=== PATIENT | male | born 1955 | race Caucasian/White ===

== ENCOUNTER 2023-02-17 17:38 | Emergency (ER) | payer BC, MEDICARE, SELFPAY ==
--- NOTE | 2023-02-17 | ECG_ITS ---
Test Reason : FALL/DIZZY Blood Pressure : / mmHG Vent. Rate : 145 BPM Atrial Rate : 000 BPM P-R Int : 000 ms QRS Dur : 086 ms QT Int : 298 ms P-R-T Axes : 000 -13 155 degrees QTc Int : 462 ms Atrial fibrillation with rapid ventricular response Inferior infarct (cited on or before 14-NOV-2015) ST & T wave abnormality, consider lateral ischemia Abnormal ECG When compared with ECG of 14-NOV-2015 05:48, Atrial fibrillation has replaced Sinus rhythm Vent. rate has increased BY [address] now depressed in Lateral leads Nonspecific T wave abnormality no longer evident in Anterior leads Referred By: Generic ED Physician Electronically Signed By:GIOVANNI MUELLER MD
--- NOTE | ~2023-02-17 | XR_ITS ---
EXAMINATION: XR ELBOW, RIGHT CLINICAL INFORMATION: Fall with elbow pain COMPARISON: None available. TECHNIQUE: AP, lateral, and oblique views of the right elbow. FINDINGS: An elbow joint effusion is seen. A definite acute fracture is not identified although given the presence of a probable joint effusion/hemarthrosis, an occult fracture may be present. XR/XR elbow RT min 3V IMPRESSION: Elbow joint effusion without definite fracture. An occult fracture cannot be excluded.
[2023-02-17 17:49] VITALS: BP 151/77; PULSE 122; RESP 18; TEMP 36.8; O2SAT 98; BMI 24.9
[2023-02-17 18:46] LABS: MANUAL DIFF FLAG NO
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
[2023-02-17 18:48] LABS: Basophils Absolute Auto 0.1 X10*3/uL (0.0-0.2); Basophils Percent Auto 0.4 % (0-2); Eosinophils Absolute Auto 0.1 X10*3/uL (0.0-0.4); Eosinophils Percent Auto 0.8 % (0-4); Hematocrit 35.1 % (42.0-52.0); Hemoglobin 12.1 g/dl (14.0-18.0); Imm Gran Abs Auto 0.03 X10*3/uL (0.00-0.03); Imm Gran Pct Auto 0.3 % (0.0-0.4); Lymphocytes Absolute Auto 2.1 X10*3/uL (1.2-4.9); Lymphocytes Percent Auto 18.4 % (20-40); Mean Corpuscular HGB Conc 34.5 g/dl (31.0-36.0); Mean Corpuscular Volume 87.1 fL (80.0-98.0); Mean Platelet Volume 9.8 fL (9.4-12.4); Monocytes Percent Auto 8.6 % (2-11); Neutrophils Absolute Auto 8.1 x10*3/uL (2.0-8.3); Neutrophils Percent Auto 71.5 % (45-73); Platelet Count 252 X10*3/uL (160-400); Red Blood Count 4.03 X10*6/uL (4.60-5.80); Red Cell Distribution Width 12.7 % (11.0-16.0); White Blood Count 11.4 X10*3/uL (4.8-10.8)
--- NOTE | 2023-02-17 18:55 | ECG_ITS ---
Test Reason : AFIB Blood Pressure : / mmHG Vent. Rate : 088 BPM Atrial Rate : 088 BPM P-R Int : 152 ms QRS Dur : 078 ms QT Int : 338 ms P-R-T Axes : 045 -03 073 degrees QTc Int : 408 ms Normal sinus rhythm Nonspecific ST abnormality Lateral leads Inferior infarct (cited on or before 14-NOV-2015) Abnormal ECG When compared with ECG of 17-FEB-2023 18:17, Sinus rhythm has replaced Atrial fibrillation Vent. rate has decreased BY 57 BPM Referred By: Fermín Patterson Electronically Signed By:GIOVANNI MUELLER MD
[2023-02-17 18:56] LABS: Prothrombin Time 12.6 SEC (11.1-13.3)
[2023-02-17 19:00] LABS: Alanine Aminotransferase 9 U/L (0-40); Albumin Level 4.7 g/dL (3.5-5.0); Alkaline Phosphatase 110 U/L (39-117); Anion Gap 16 (12-20); Aspartate Amino Transferase 18 U/L (5-37); Bilirubin Total 0.6 mg/dL (0.0-1.0); Blood Urea Nitrogen 24 mg/dL (9-16); Calcium 9.8 mg/dL (8.4-10.2); Carbon Dioxide 21 mmol/L (22-29); Chloride 108 mmol/L (96-108); Creatinine Clr Calc Pharmacy 64.6; Estimated Glomerular Filt Rate > 60; Glucose Random 154 mg/dL (60-115); Magnesium 1.7 mg/dL (1.6-2.6); Potassium 4.4 mmol/L (3.3-5.1); Sodium 141 mmol/L (135-145); Total Protein 8.1 g/dL (6.5-8.0)
[2023-02-17 19:07] LABS: Troponin-I High Sensitivity 5.2 ng/L (<3.5-35.0)
[2023-02-17] MEDS: Morphine Sulfate 4 MG/ML CARTRIDGE IVPUSH ×2 (19:10→20:40)
[2023-02-17] MEDS: ondansetron HCL 4 MG/2 ML VIAL IVPUSH (19:10)
[2023-02-17 19:14] VITALS: BP 146/60; PULSE 88; RESP 12; TEMP 37.6; O2SAT 98
--- NOTE | 2023-02-17 19:39 | PC.NURSE ---
I assumed care of the pt at 1900. Pt is resting in bed at this time with at the bedside, A&Ox4, GCS 15,. Pt is complaining of 11/10 pain in the right arm. Pt was medicated per JUN. Pt waiting official XRay report and ortho consult with dispo at this time. Due to potential for surgery, eliquis is being held, per .
[2023-02-17] MEDS: Apixaban 5 MG TABLET PO (20:21)
[2023-02-17] MEDS: dilTIAZem HCL CD 120 MG CAP.ER.DEG PO (21:00)
== END 2023-02-17 21:23 | disposition home or self-care (01) ==
PROVIDERS: Emergency Provider Internal Medicine; PCP Physician Assistant Medical
DX: S52.91XA Unspecified fracture of right forearm, initial encounter for closed fracture (principal); S80.212A Abrasion, left knee, initial encounter; V28.09XA Other motorcycle driver injured in noncollision transport accident in nontraffic accident, initial encounter; I48.0 Paroxysmal atrial fibrillation; I10 Essential (primary) hypertension; E78.5 Hyperlipidemia, unspecified; Z95.1 Presence of aortocoronary bypass graft; Y93.89 Activity, other specified; Y92.9 Unspecified place or not applicable; Y99.9 Unspecified external cause status; Z79.899 Other long term (current) drug therapy; Z79.82 Long term (current) use of aspirin
CPT/HCPCS: 29105; 36415; 73080; 80053; 83735; 84484; 85025; 85610; 93005; 96374; 96375; 96376; 99284; J2270; J2405

== ENCOUNTER 2025-02-26 10:12 | Outpatient (AMB) | payer BC, MEDICARE, SELFPAY ==
--- NOTE | 2025-02-26 10:15 | A.PHYSOV ---
Vital Signs 02/26/25 10:20 Height 6 ft Weight 2 lb 15 oz BMI 0.4 Intake Visit Reasons: 3M FUV Intake Note: 69 year old male here today for a 3 month medication follow up on oxycodone Hoistman Required: No Allergies latex (LATEX) Allergy (Mild, Verified 02/26/25 10:19) RASH HPI Comments Details: History of Present Illness The patient is a 69-year-old male presenting with neck and lower back pain. He has been experiencing bilateral upper and lower extremity radicular symptoms and has undergone lumbar and cervical epidural injections. The most recent bilateral L4 transforaminal injections on September 11, 2022, resulted in a 100% reduction of radicular pain and a 70% reduction of lower back pain. The patient received a cervical epidural injection at C7 on October 16, 2022, which provided excellent relief. He is contracted for oxycodone 10 mg four times a day as needed, which has stabilized his medication use and improved his quality of life. He reports cramping in his right hand, and a carpal tunnel injection on November 25, 2024, was very helpful. The patient also experiences pain in both knees, with injections providing relief for a couple of months. He describes the condition as bone against bone with no cartilage, leading to sudden falls. The patient is scheduled for hernia surgery in April, which is expected to be painful. There is a discussion about adjusting medications post-surgery to manage pain effectively. Pain Description - Neck and lower back pain with bilateral upper and lower extremity radicular symptoms - Pain in both knees described as bone against bone with no cartilage - Cramping in the right hand Results [facility] Medical History (Updated 02/26/25 @ 10:46 by Rodríguez Fontaine DO) Coronary artery disease Hyperlipidemia Hypertension Surgical History (Updated 02/24/25 @ 13:41 by Radha Good MA) History of cholecystectomy (Unknown) History of spinal surgery (Unknown) History of neck surgery (Unknown) Hx of CABG Social History (Updated 02/24/25 @ 13:43 by Radha Good MA) Alcohol intake: never Patient Tobacco Use Status: Never used Tobacco Review of Systems Narrative Review of Systems - Musculoskeletal: Reports neck and lower back pain, bilateral upper and lower extremity radicular symptoms, knee pain, and cramping in the right hand. Denies change in bowel bladder habits, denies fever or chills, denies uncontrolled depression or suicidal ideation Physical Exam Exam Exam: Patient appears to be in no acute distress. Appropriately conversant oriented, gait was waddling without antalgia. Dural tension signs were negative. Lumbar range of motion was restricted in extension side bending. Cervical range of motion was restricted in all planes. SI provocative maneuvers were negative. Patient demonstrated an upper motor neuron signs. Neurologic examination was nonfocal. Examination of both knees reveals tenderness to palpation over medial joint line. Crepitus with flexion-extension. No effusion, no ligamentous instability. Heel walk and toe walk were not tested. Office Procedures AMB Knee Injection AMB Knee Injection Procedure Details: Risks and benefits of the procedure were discussed with the patient. Potential alternative measures were also discussed. Patient understands that the procedure is completely elective. Potential side effects associated with injectable medications were discussed. All questions were answered to the patient's satisfaction. With patient in sitting position medial aspect of the right knee was prepped with Betadine. 1.5 in 25 gauge hypodermic needle was introduced percutaneously and advanced into the joint. After negative aspiration for blood to the volume of 4 cc containing 40 mg of triamcinolone and 2% lidocaine was injected without resistance. The identical procedure was repeated for the left side. Patient tolerated procedure very well without complications with excellent anesthetic response. Knee Injection - : Bilateral All charges added?: Procedure code (CPT) selection complete Office Meds Kenalog 40 mg/mL suspension for injection Performing Provider: Rodríguez Fontaine DO Performing Location: [facility] Administered by: Rodríguez Fontaine DO on 02/26/25 10:50 Dose Route Admin Location Dispensed Lot Number Expiration Date [facility] [employer] 80 mg intra-articular 2 mL [id number] 09/20/26 [address]-5 [employer] Total Dispensed Waste 2 mL 0 % lidocaine (PF) 20 mg/mL (2 %) injection solution Performing Provider: Rodríguez Fontaine DO Performing Location: [facility] Administered by: Rodríguez Fontaine DO on 02/26/25 10:50 Dose Route Admin Location Dispensed Lot Number Expiration Date [facility] [employer] 120 mg IM 6 mL [id number] Total Dispensed Waste 6 mL 0 % Assessment & Plan Assessment & Plan (1) Bilateral primary osteoarthritis of knee: Code(s): M17.0 - Bilateral primary osteoarthritis of knee Category: Medical Plan Pain Management - Affect: Pain management has improved the patient's quality of life. - Analgesia: Oxycodone 10 mg four times a day as needed, with significant pain reduction from injections. - Activities of Daily Living: Pain management has stabilized medication use and improved daily functioning. Plan Patient was informed and verbally consented to the use of an ambient scribe for clinic note documentation during this visit. 1. Neck Pain The patient has been experiencing neck pain with bilateral upper extremity radicular symptoms. He has undergone cervical epidural injections, with the most recent at C7 on October 16, 2022, providing excellent relief. 2. Lower Back Pain The patient reports lower back pain with bilateral lower extremity radicular symptoms. Bilateral L4 transforaminal injections on September 11, 2022, resulted in a 70% reduction of pain. 3. Carpal Tunnel Syndrome The patient reports cramping in the right hand, with a carpal tunnel injection on November 25, 2024, being very helpful. 4. Osteoarthritis Of The Knees The patient experiences knee pain described as bone against bone with no cartilage. Injections have provided relief for a couple of months. 5. Hernia The patient is scheduled for hernia surgery in April, which is expected to be painful. There is a plan to adjust medications post-surgery to manage pain effectively. Discussion Notes We discussed the patient's upcoming hernia surgery in April, which is anticipated to be painful. Options for managing post-surgical pain include adjusting the current medication regimen or allowing the surgical team to manage pain initially. The patient was reassured that the medication contract would not be compromised during this period. Patient Instructions - Continue current pain management regimen as prescribed. - Follow up with the surgical team regarding hernia surgery and post-operative pain management. - Report any changes in pain or medication effectiveness. Orders: Orders AMB Knee Injection Today M17.0 - Bilateral primary osteoarthritis of knee Coding Level of Care Code Est Pt Level 4 (64745) Complex EM visit Add On G2211 Diagnoses Bilateral primary osteoarthritis of knee M17.0 CPT Codes AMB Knee Injection - Hip/Bursa Injection - : Bilateral ([id number])
--- OUTSIDE RECORDS SUMMARY | 2025-02-26 11:55 | XMS_ITS | Clinical Summary ---
Author Organization [facility] Address [address] [place] [id number] Phone Care Team Providers Care Sale Professional Digital Marketing Name Role Phone Hernan Wheatley MD Primary Care Provider U alfredailmanas Allergies Active Allergy Reactions Criticality Noted Date Comments Latex 08/18/2018 Medications clopidogrel (PLAVIX) 75 mg tablet Take 75 mg by mouth daily. Active lisinopril (PRINIVIL,ZESTRI L) 30 MG tablet Take 30 mg by mouth daily. Active metFORMIN (GLUCOPHAGE) 500 MG tablet Take 500 mg by mouth daily. Active oxyCODONE (OXYCONTIN) 10 mg TR12 12 hr tablet Take 10 mg by mouth 4 (four) times a day. Active sertraline (ZOLOFT) 100 MG tablet Take 100 mg by mouth daily. Active Social History Tobacco Use Types Packs/Day Years Used Date Smoking Tobacco: Unknown Smokeless Tobacco: Never Alcohol Use Standard Drinks/Week Comments Not Currently 0 (1 standard drink = 0.6 oz pur e alcohol) Education Answer Date Recorded Are you interested in more education? Not on abigail e 08/18/2022 Are you concerned about learning? Not on file 08/18/2022 No 08/18/2022 No 08/18/2022 Digital Access Answer Date Recorded No 09/19/2022 No 09/19/2022 No 09/19/2022 Reliable internet access at home? Not on file 09/19/2022 Device with a working camera? Not on file Sex and Gender Information Value Date Recorded Sex Assigned at Male 08/18/2018 2:09 PM EDT Legal Sex Male 1:55 PM EDT Gender Identity Male 08/18/2018 2:09 PM EDT Sexual Orientation Straight 08/18/2018 2: 09 PM EDT Last Filed Vital Signs Vital Sign Reading Time Taken Comments Blood Pressure 141/73 08/18/2018 4:53 PM EDT Pulse 93 08/18/2018 4:53 PM EDT Temperature 36.8 C (98.3 F) 08/18/2018 2:06 PM EDT Respiratory Rate 15 08/18/2018 4:53 PM EDT Oxygen Saturation 99% 08/18/2018 4:53 PM EDT Inhaled Oxygen Concentration - - Weight 115.7 kg (255 lb) 08/18/2018 2:06 PM EDT Height 185.4 cm (6' 1 ) 08/18/2018 2:06 PM EDT Body Mass Index 33.64 08/18/2018 2:06 PM EDT Plan of Treatment Not on file Medical Devices Not on file Insurance MEDICARE PART A & B [facility] PPO EPO MEDICARE PART A & B [facility] PPO EPO MEDICARE PART A & B [facility] PPO EPO MEDICARE PART A & B Member Subscriber Plan / Payer (Ef fective 2018-Present) Name:RosaIsrrael hernandez Member ID:[id number] Relation to Subscriber:Self Name:Isrrael Lee Subscriber ID:[id number] Payer ID:[id number] Group ID:Not on file Type:Medicare Address: [employer] [id number] [facility] PPO EPO MEDICARE PART A & [place] [address] [place] [address] PPO EPO MEDICARE PART A & B PPO EPO MEDICARE PART A & [place] [address] [place] [address] PPO EPO MEDICARE PART A & [facility] A & B [employer] [facility] EPO MEDICARE PART A & B Care Teams Sale Professional Digital Marketing Relationship Specialty Start Date End Date Hernan Wheatley MD PCP - General Internal Medicine 08/18/18 Additional Source Comments The information contained in this document represents components of the legal health record. It is not the complete legal health record.[facility]
--- OUTSIDE RECORDS SUMMARY | 2025-02-26 11:55 | XMS_ITS | Clinical Summary ---
Author Organization [address] [facility] Address [address] [place] [address] Phone Care Team Providers Care Centrifugal Drier Operator Name Role Phone Isrrael Dowling Primary Care Provider [phone] Allergies Active Allergy Reactions Criticality Noted Date Comments Latex Rash High 08/20/2006 Medications cholecalciferol (VITAMIN D-3) 25 mcg (1,000 unit) tablet Take 1 tablet (1,000 Units total) by mouth 1 (one) time each day. 08/01/2022 Active cyanocobalamin (VITAMIN B-12) 1,000 mcg/mL injection Inject 1 mL into the muscle every 30 days. 06/02/2023 Active nitroglycerin (NITROSTAT) 0.[address] 1 Tablet under the tongue every 5 minutes as needed for Chest pain. 11/13/2023 Active oxyCODONE-aceta minophen (PERCOCET) 10-325 mg per tablet Take 1 tablet by mouth every 6 hours as needed for Pain for up to 28 days 03/22/2018 Active docusate sodium (COLACE) 100 mg capsule Take 1 capsule (100 mg total) by mouth 2 (two) times a day. 14 each 06/02/2024 Active ezetimibe (ZETIA) 10 mg tablet Take 1 tablet (10 mg total) by mouth 1 (one) time each day. Take 1 Tablet by mouth daily for 180 days. 90 each 3 12/30/2024 Active rosuvastatin (CRESTOR) 40 mg tablet TAKE 1 TABLET BY MOUTH DAILY 90 tablet 01/21/2025 Active tamsulosin (FLOMAX) 0.4 mg 24 hr capsule Take 2 capsules (0.8 mg total) by mouth 1 (one) time each day. 180 capsule 01/21/2025 Active rivastigmine (EXELON) 1.5 mg capsule Take 1 capsule (1.5 mg total) by mouth 2 (two) times a day. 180 capsule 01/21/2025 Active cyclobenzaprine (FLEXERIL) 10 mg tablet Take 1 tablet (10 mg total) by mouth 3 (three) times a day if needed for muscle spasms. for muscle spasms 30 tablet 1 01/21/2025 Active apixaban (Eliquis) 5 mg tablet Take 1 tablet (5 mg total) by mouth 2 (two) times a day. 180 tablet 1 01/19/2025 Active sertraline (ZOLOFT) 100 mg tablet Take 2 tablets (200 mg total) by mouth 1 (one) time each day. Take 2 Tablets by mouth daily 180 tablet 1 01/20/2025 Active pantoprazole (PROTONIX) 40 mg EC tablet Take 1 tablet (40 mg total) by mouth 1 (one) time each day. 90 tablet 3 01/27/2025 Active memantine (NAMENDA) 10 mg tablet Take 1 tablet (10 mg total) by mouth 2 (two) times a day. 180 tablet 3 01/27/2025 Active amLODIPine (NORVASC) 5 mg tablet Take 1 tablet (5 mg total) by mouth 1 (one) time each day. 90 tablet 3 01/27/2025 Active metoprolol succinate (TOPROL-XL) 50 mg 24 hr tablet Take 1 tablet (50 mg total) by mouth 1 (one) time each day. Take 1 Tablet by mouth every morning for 180 days 90 tablet 3 01/27/2025 Active Active Problems Problem Noted Date Diagnosed Date Infection and inflammatory r eaction due to other internal prosthetic devices, implants and grafts, subsequent encounter 06/25/2024 Disruption or dehiscence of closure of internal operation (surgical) wound of abdominal wall muscle or fascia, subsequent encounter 05/23/2024 Diabetes mellitus with perip heral angiopathy (CMS/HCC V24, CMS/[facility] V28) 05/23/2024 Dementia in other diseases c lassified elsewhere, unspecified severity, with mood disturbance ([facility] V24, CMS/HCC V28) 05/23/2024 Dementia in other diseases c lassified elsewhere, unspecified severity, with anxiety (CMS/[facility] V24, CMS/HCC V28) 05/23/2024 Combined rheumatic disorders of mitral, aortic and tricuspid valves 05/23/2024 Pulmonary hypertension (CMS/[facility] V24, CMS/[facility] V28 ) 05/23/2024 Benign prostatic hyperplasia without lower urinary tract symptoms 05/23/2024 Presence of coronary artery bypass graft stent 0 05/23/2024 termite helper (current) use of oral hypoglycemic yasmin gs 05/23/2024 termite helper (current) use of anticoagulants 2024 History of fall 05/23/2024 Open abdominal wall wound 05/19/2024 Gastric perforation (CMS/[facility] V24, [facility] V28) 0 12/10/2023 Pneumoperitoneum 12/10/2023 Hyperkalemia 06/02/2023 Benign prostatic hyperplasia with lower urinary tract symptoms 05/14/2023 Paroxysmal atrial fibrillation ([facility] V24, [facility] V28) 03/13/2023 Overview (12/19/2023): - Hospitalized at [facility] in late January 2023 with new diagnosis of atrial fibrillation-presenting with RVR in the 140s - Initially presented after falling off of his motorized scooter injuring his right elbow with A-fib being an incidental finding-patient was effectively asymptomatic - Started on low-dose diltiazem in addition to his current metoprolol and Eliquis for CVA prophylaxis - Had a second episode of less severe atrial fibrillation on 05/04/2023 and another more severe episode with higher heart rates in the 150s tween 05/27/2023 and 05/28/2023- these were recorded on his [employer] mobile device and Dr. Suero was able to confirm that these were true atrial fibrillation episodes - Trial of amiodarone started on 05/31/2023 Last Assessment & Plan: Patient is clearly symptomatic with his atrial fibrillation-particularly when he has high heart rates. I suspect it is also triggering his angina. I reviewed that if he starts having chest pain again, he should go to the hospital. The less severe episodes are less clear. I explained that it really depends on how much they are bothering him. Typically I use a threshold of about 6 hours but this is more an art than a science. After discussion of risks and benefits, and through shared decision making, we are going to proceed with a slow amiodarone load. I am starting him on 200 twice daily. Side effects were reviewed with the patient and his daughter who verbalized understanding. I have ordered TFTs and LFTs for baseline. I have ordered PFTs as well. Ultimately, I am also referring him to electrophysiology to discuss ablation. If this is agreed upon is the plan, he potentially could get off of amiodarone after ablation. Continue Eliquis 5 twice daily for CVA prophylaxis. Since he has been on uninterrupted Eliquis for more than 4 weeks now, should he go to the ER for any refractory episodes of atrial fibrillation, he can be cardioverted in the ER and discharged. At this point, I will discontinue diltiazem as it may be contributing to ongoing orthostatic hypotension symptoms. Bilateral carotid artery stenosis 02/09/2023 Dyspnea on effort 12/01/2022 Overview (12/19/2023): Last Assessment & Plan: May be related to chronotropic incompetence, I am hopeful that cutting back on metoprolol will help. Alzheimer's dementia without behavioral disturbance ([facility] V24, [facility] V28) 08/05/2018 Vitamin D deficiency 05/07/2018 Vitamin B12 deficiency 05/07/2018 Acute medial meniscus tear of right knee 018 Subclinical hyperthyroidism 02/02/2017 PVD (peripheral vascular disease) ([facility] V24) 08/18/2016 Overview (02/14/2024): -Long-standing claudication symptoms -PIERCE in August 2016 of 0.96 on the right and 0.87 on the left-normal waveforms at all levels suggesting insignificant PVD; lower extremity arterial duplex Doppler on the same day showed mild stenosis in the right external iliac and right common femoral artery and mild diffuse disease in the left mid to distal SFA and diffuse disease in the left REBEKA -Ultimately claudication symptoms are likely neurogenic in light of the studies as above Orthostatic hypotension 07/03/2016 Overview (12/19/2023): Last Assessment & Plan: Will discontinue diltiazem. Cautiously continue current metoprolol XL dose and lisinopril 10 mg daily. Hypogonadism in male 04/12/2016 Anxiety and depression 10/14/2014 Diabetes mellitus type 2, co ntrolled, without complications ([facility] V24, [facility] V28) 09/15/2014 Assessment & Plan (09/16/2024 10:02 PM EDT): Orders: Lipid panel with reflex to direct LDL; Future Microalbumin creatinine urine ratio; Future Comprehensive metabolic panel; Future Hemoglobin A1c; Future Vitamin D 25 hydroxy; Future Vitamin B12; Future CBC and differential; Future Thyroid stimulating hormone with reflex to free t4 and free t3; Future Iron and TIBC; Future Cervical radiculitis 06/17/2009 Lumbosacral radiculitis 06/17/2009 Sacroiliac pain 06/17/2009 Dysphagia 02/01/2009 Coronary artery disease 01/23/2008 Overview (12/19/2023): -Status post CABG in 2011 with JORDAN to the LAD, radial to the OM1, and vein graft to the RCA -Status post repeat cardiac cath 11/14/2013 for ongoing anginal symptoms and high risk stress test with PCI and drug-eluting stent to the [place] RCA for significant blockage -Status post repeat hospitalization in June 2016 for unstable angina with dynamic ECG changes-new anterolateral ST depressions though troponin T was negative- repeat cardiac cath during this hospitalization showed showed ISR with 100% occlusion of an ostial PDA, which was thought to be the culprit. Intervention could not be performed due to low benefit and complexity. As such, it was managed medically. However he has been maintained on Plavix for UA per CURE protocol -Most recent echocardiogram from 10/30/2022 showing upper normal left ventricular cavity size with normal wall thickness and low normal systolic function, normal regional wall motion with an ejection fraction of 50 to 55%. Paradoxic septal motion in keeping with prior cardiac surgery, grossly normal right ventricular systolic function, mild aortic insufficiency, mild MR, mild TR, at least mild pulmonary hypertension, upper normal ascending aortic size at 3.8 cm Last Assessment & Plan: Did have an episode of what sounds like refractory angina in the setting of A- fib with RVR. However, under normal circumstances his angina is well-controlled. Continue current metoprolol 50 mg daily, rosuvastatin 40 mg at bedtime, discontinue baby aspirin due to coexisting Eliquis and relative higher bleeding risk in the setting of falls in the past. Esophageal reflux 03/16/2005 Lumbago 03/16/2005 Hypertension 03/16/2005 Overview (12/19/2023): Last Assessment & Plan: Today's blood pressure is unusually high but it is because he did not take his morning meds. Per the list that he has brought in from home, his blood pressures are actually quite low-ranging on average from 80s to 120s systolic. Thankfully, he has not had significant syncopal episodes or major falls. Hyperlipidemia 03/16/2005 Overview (12/19/2023): Last Assessment & Plan: Continue rosuvastatin 40 mg at bedtime, recommended fish oil supplements and avoidance of refined carbohydrates or sugary foods for triglyceride control Encounters Date Type Department Care Team Description 02/09/2025 8:30 AM EDT Office Visit General Surgery - [address] [phone] Brent Horvath MD Ventral incisional hernia (Primary Dx) 02/04/2025 Billing Patient Not Present General Surgery [facility] [address] [facility] [address] [place] [phone] Brent Horvath MD Rupture of abdominal incision, initial encounter (Primary Dx); Infection and inflammatory reaction due to other internal prosthetic devices, implants and grafts, subsequent encounter 12/30/2024 Telephone [facility] - [facility] [address] [facility] [address] [place] [phone] Ree Mckenzie PA from Last 3 Months Immunizations Immunization Administration Dates Next Due Influenza Quadravalent, MDCK , 0.5ml, preservative free (Flucelvax) 6mo and older 05/05/2019,05/06/2018 Influenza Quadravalent, MDCK , 0.5ml, with preservative (Flucelvax) 6mo and older 02/02/2017 Influenza trivalent, 0.5mL ( Fluad) 65yo and older 01/09/2024 Influenza trivalent, 0.5mL ( Fluzone High-dose) 65yo and older 02/09/2023,04/03/2022,05/26/2020 Influenza trivalent, with pr eservative (Fluzone; Afluria) 6mo and older 04/07/2016,03/22/2015,02/03/2014,12/27,02/07/2012,02/02/2011,01/26/2009 ,01/23/2008,03/24/2005 Pfizer SARS-CoV-2 COVID-19, mRNA, LNP-S, preservative free 09/03/2020 Pneumococcal conjugate 13 va lent (Prevnar 13, PCV13) 2mo and older 05/26/2020 Pneumococcal polysaccharide 23 valent (Pneumovax 23) 2yo and older 07/19/2021,11/14/2015,03/24/2005 Td Tetanus diptheria (Tdvax) 7yo and older 11/02/2017 Tdap Tetanus diptheria acell ular pertussis (Boostrix; Adacel) 7yo and older 05/22/2007 Surgical History Surgery Date Site/Laterality Comments OTHER SURGICAL HISTORY 03/10/2004 PROCEDURE: [place] EGD BALLOON DILATION ESOPHAGUS <30 MM DIAM; COMMENT: No esophageal narrowing. Distal esophagus dilated to 18mm with improvement of dysphagia x 2 years OTHER SURGICAL HISTORY 05/19/2008 PROCEDURE: AZ EGD BALLOON DILATION ESOPHAGUS <30 MM DIAM; COMMENT: Status post fundoplication, GEJ dilated to 18mm, bile in the stomach, gastritis-bx: No H pylori, mild gastropathy, nl sb, complicated by esophageal perforation. OTHER SURGICAL HISTORY 12/2008 PROCEDURE: AZ EXPLORATORY LAPAROTOMY CELIOTOMY W/WO BIOPSY SPX; COMMENT: SBO; lysis adhesions OTHER SURGICAL HISTORY 1993 PROCEDURE: AZ RPR INGUN HERNIA SLIDING ANY AGE; COMMENT: Sarika fundoplication OTHER SURGICAL HISTORY 07/30/2009 PROCEDURE: [place] ESOPHAGOSCOPY FLEXIBLE TRANSORAL WITH BIOPSY; COMMENT: biopsies of the mid-esophagus: Focal nonspecific esophagitis of unclear etiology. CORONARY ARTERY BYPASS GRAFT PROCEDURE: HISTORICAL CABG; COMMENT: 05/2011 - x4 CHOLECYSTECTOMY PROCEDURE: HISTORICAL CHOLECYSTECTOMY TONSILLECTOMY PROCEDURE: HISTORICAL TONSILLECTOMY CARDIAC CATHETERIZATION PROCEDURE: HISTORICAL CARDIAC CATH; COMMENT: x 9 stents NECK SURGERY 12/29/2021 PROCEDURE: HISTORICAL NECK SURGERY; COMMENT: dr. yan -anterior cervical discectomy C3-C4 HIATAL HERNIA REPAIR Medical History Medical History Date Comments Lumbago DX:Lumbago Acute myocardial infarction, unspecified site, initial episode of care DX:Acute myocardial infarcti on, unspecified site, initial episode of care; COMMENT: 02/25 Chronic ischemic heart disea se, unspecified DX:Chronic ischemic heart di sease, unspecified Essential hypertension, benign D X:Essential hypertension, benign Esophageal reflux DX:Esophageal reflux Mixed hyperlipidemia DX:Mixed hy perlipidemia Closed fracture of unspecifi ed phalanx or phalanges of hand DX:Closed fracture of uns pecified phalanx or phalanges of hand Other ventral hernia without mention of obstruction or gangrene DX:Other ventral hernia wit hout mention of obstruction or gangrene Hypertension 03/16/2005 DX:Hypertension Hyperlipidemia 03/16/2005 DX:Hyperlipidemi a Diabetes mellitus type 2, co ntrolled, without complications ([facility] V24, [facility] V28) 09/15/2014 DX:Diabetes mellitus type 2, controlled, without complications ([facility]) Depression Anxiety Family History Medical History Relation Name Comments Other: estranged Father Coronary artery disease Mother shun lara in her 50's Relation Name Status Comments Father Other Mother Social History Tobacco Use Types Packs/Day Years Used Date Smoking Tobacco: Never Smokeless Tobacco: Never Tobacco Cessation:Counseling Given: Not Answered Alcohol Use Standard Drinks/Week Comments No 0 (1 standard drink = 0.6 oz pur e alcohol) Housing Instability Answer Date Recorde d Are you worried that in the next 2 months you may not have stable housing? No 09/16/2024 Food Access & Nutrition Answer Date Rec orded Do you have access to a vari ety of food including fruits and vegetables? Yes 09/16/2024 Access to Healthcare Answer Date Record ed Within the last 3 months, ho w many times did you visit the emergency department for your medical care? 0 09/16/2024 Health Literacy Answer Date Recorded How often do you need to hav e someone help you when you read instructions, pamphlets, or other written material from your doctor or pharmacy? Often 09/16/2024 Caregiver: How often do you need to have someone help you when you read instructions, pamphlets, or other written material from your doctor or pharmacy? Not on file 09/16/2024 Financial Risk Answer Date Recorded How hard is it for you to pa y for the very basics like food, housing, medical care, and air conditioning / heating? Somewhat hard 09/16/2024 Transportation Answer Date Recorded Has the lack of transportati on kept you from meetings, work, or from getting things needed for daily living? No Has the lack of transportati on kept you from medical appointments or from getting medications? No 09/16/2024 Food Risk Answer Date Recorded Within the past 12 months we worried whether our food would run out before we got money to buy more. Never true 09/16/2024 Within the past 12 months th e food we bought just didn't last and we didn't have money to get more. Never true 09/16/2024 Dependent Care Answer Date Recorded Do you need help finding or paying for care for your loved ones. For example, child attendant or elderly care for an older adult? No 09/16/2024 Education Answer Date Recorded Do you think completing more education or training, like finishing a GED, going to college, or learning a trade, would be helpful for you? No 09/16/2024 Employment and Income Answer Date Recor ded During the last four weeks, have you been actively looking for work? No 09/16/2024 Living Situation Answer Date Recorded What is your living situation? Unrecognized valu e 09/16/2024 Interpersonal Safety Answer Date Record ed Physical Abuse Unrecognized value 06/02/2024 Verbal Abuse Unrecognized value 06/02/2024 Sex and Gender Information Value Date Recorded Sex Assigned at Male 05/28/2024 8:55 AM EST Legal Sex Male 5:49 PM EST Gender Identity Male 05/28/2024 8:55 AM EST Sexual Orientation Straight 05/28/2024 8: 55 AM EST Obstetrics History Last Filed Vital Signs Vital Sign Reading Time Taken Comments Blood Pressure 131/66 02/09/2025 8:26 AM EDT Pulse 87 02/09/2025 8:26 AM EDT Temperature 36.4 C (97.5 F) 09/29/2024 8:10 AM EDT Respiratory Rate 16 09/16/2024 3:21 PM EDT Oxygen Saturation 100% 06/02/2024 9:57 AM EST Inhaled Oxygen Concentration - - Weight 103 kg (227 lb 12.8 oz) 02/09/2025 8:26 A M EDT Height 182.9 cm (6') 02/09/2025 8:26 AM EDT Body Mass Index 30.9 02/09/2025 8:26 AM EDT Plan of Treatment Upcoming Encounters Date Type Department Care Team (Late st Contact Info) Description 03/11/2025 2:00 PM EST Office Visit Adult Medicine [facility] [address] [place] [phone] Isrrael Dowling PA [address] [place] [phone] 04/27/2025 8:45 AM EST Office Visit General Surgery - [place] [address] [facility] [address] [place] [phone] Brent Horvath MD [address] [place] [phone] Health Maintenance Due Date Last Done Comments Diabetes: Annual Foot Exam 09/18/2024 09/19/2023 Diabetes: Annual Retina Eye Exam 09/24/2024 09/25/2023 Diabetes: Annual Urine Albumin-Creatinine Ratio (uACR) 09/27/2024 09/28/2023 COVID-19 Vaccine ( season) 2024 09/03/2020, 08/13/2020 Influenza Vaccine (#1) 2024 , 02/09/2023, 04/03/2022, Additional history exists Diabetes: Blood Sugar Control Test (HGBA1C) 03/04/2025 09/01/2024, 06/18/2024, 01/24/2024, Additional history exists Diabetes: Annual GFR (Glomerular Filtration Rate) 09/01/2025 09/01/2024, 06/18/2024, 01/24/2024, Additional history exists Hypertension/CHF/CAD Annual BMP Blood Test 09/01/2025 09/01/2024, 06/18/2024, 01/24/2024, Additional history exists Falls Risk Assessment 09/16/2025 09/16/2024 , 09/16/2024, 06/02/2024, Additional history exists Medicare Annual Wellness Visit 09/16/2025 09/16/2024 Social Influencers of Health Screening 09/16/2025 09/16/2024 DTaP,Tdap,and Td Vaccines (3 - Td or Tdap) 11/03/2027 11/02/2017, 05/22/2007 Cholesterol Screening (Lipid Panel) 09/01/2029 09/01/2024, 06/18/2024, 01/24/2024, Additional history exists Hepatitis C Screening Completed 04/25/2014 Pneumococcal Vaccine: 50+ Years Completed 07/19/2021, 05/26/2020, 11/14/2015, Additional history exists Depression Screening Completed 09/16/2024 Colorectal Cancer Screening: Stool Based Tests (FOBT/FIT) Discontinued HIB Vaccines Aged Out No longer eligi ble based on patient's age to complete this topic HPV Vaccines Aged Out No longer eligi ble based on patient's age to complete this topic Hepatitis A Vaccines Aged Out No long er eligible based on patient's age to complete this topic Hepatitis B Vaccines Aged Out No long er eligible based on patient's age to complete this topic IPV Vaccines Aged Out No longer eligi ble based on patient's age to complete this topic MMR Vaccines Aged Out No longer eligi ble based on patient's age to complete this topic Meningococcal ACWY Vaccine Aged Out N o longer eligible based on patient's age to complete this topic Meningococcal B Vaccine Aged Out No l onger eligible based on patient's age to complete this topic RSV Immunization Adult Patients Discontinued RSV Immunization Patients Under 20 months Aged Out No longer eligible based on patient's age to complete this topic Varicella Vaccines Aged Out No longer eligible based on patient's age to complete this topic Zoster Vaccines Discontinued Procedures Procedure Name Priority Date/Time Associated Diagnosis Comments COMPREHENSIVE METABOLIC PANEL Routine 09/01/2024 9:47 AM EDT Controlled type 2 diabetes mellitus without complication, without long-term current use of insulin ([facility]/HCC V24, CMS/HCC V28) Anxiety and depression Coronary artery disease due to calcified coronary lesion Gastroesophageal reflux disease without esophagitis Vitamin D deficiency Vitamin B12 deficiency Orthostatic hypotension Primary hypertension Other hyperlipidemia Paroxysmal atrial fibrillation (CMS/HCC V24, CMS/HCC V28) Alzheimer's dementia without behavioral disturbance (CMS/HCC V24, CMS/HCC V28) Subclinical hyperthyroidism Benign prostatic hyperplasia with lower urinary tract symptoms, symptom details unspecified HEMOGLOBIN A1C Routine 09/01/2024 9:47 AM EDT Controlled type 2 diabetes mellitus without complication, without long-term current use of insulin ([facility] V24, [facility] V28) Anxiety and depression Coronary artery disease due to calcified coronary lesion Gastroesophageal reflux disease without esophagitis Vitamin D deficiency Vitamin B12 deficiency Orthostatic hypotension Primary hypertension Other hyperlipidemia Paroxysmal atrial fibrillation (CMS/HCC V24, CMS/HCC V28) Alzheimer's dementia without behavioral disturbance (CMS/HCC V24, CMS/HCC V28) Subclinical hyperthyroidism Benign prostatic hyperplasia with lower urinary tract symptoms, symptom details unspecified LIPID PANEL WITH REFLEX TO DIRECT LDL Routine 09/01/2024 9:47 AM EDT Controlled type 2 diabetes mellitus without complication, without long-term current use of insulin ([facility] V24, CMS/HCC V28) Anxiety and depression Coronary artery disease due to calcified coronary lesion Gastroesophageal reflux disease without esophagitis Vitamin D deficiency Vitamin B12 deficiency Orthostatic hypotension Primary hypertension Other hyperlipidemia Paroxysmal atrial fibrillation (CMS/HCC V24, CMS/HCC V28) Alzheimer's dementia without behavioral disturbance (CMS/HCC V24, CMS/HCC V28) Subclinical hyperthyroidism Benign prostatic hyperplasia with lower urinary tract symptoms, symptom details unspecified FALLS RISK ASSESSMENT Routine 01/24/2024 URINE ALBUMIN CREATININE RATIO Routine 09/28/2023 DIABETES EYE EXAM Routine 09/25/2023 DIABETES FOOT EXAM Routine 09/19/2023 HEPATITIS C SCREENING Routine 04/25/2014 from Last 3 Months or Most Recently Relevant to Health Maintenance Results * (ABNORMAL) Lipid panel with reflex to direct LDL (09/01/2024 9:47 AM EDT) Cholesterol 153 0 - 200 mg/dL LAB CHEMISTRY METHOD 09/01/2024 3:20 PM EDT [facility] Triglycerides 197(H) 0 - 150 mg/dL LAB CHEMISTRY METHOD 09/01/2024 3:20 PM EDT [facility] HDL 50 >=40 mg/dL LAB CHEMISTRY METHOD 09/01/2024 3:20 PM EDT [facility] LDL Calculated 64 0 - 100 mg/dL LAB CHEMISTRY METHOD 09/01/2024 3:20 PM EDT [facility] VLDL Cholesterol Osmani 39.4 mg/dL LAB CHEMISTRY METHOD 09/01/2024 3:20 PM EDT [facility] Non HDL Chol. (LDL+VLDL) 103 <145 mg/dL LAB CHEMISTRY METHOD 09/01/2024 3:20 PM EDT [facility] Chol/HDL Ratio 3.1 0.0 - 4.4 LAB CHEMISTRY METHOD 09/01/2024 3:20 PM EDT [facility] Blood Venous blood specimen / Unknown Venipuncture / Unknown 09/01/2024 9:47 AM EDT 09/01/2024 9:47 AM EDT Isrrael ROMERO LAB BLOOD ORDERABLES Donna l Result [facility] [address] [place] [address], * Hemoglobin A1c (09/01/2024 9:47 AM EDT) Hemoglobin A1C 5.8 <6.5 % LAB CHEMISTRY METHOD 09/01/2024 10:15 PM EDT [facility] Mean Bld Glu Estim. 120 mg/dL LAB CHEMISTRY METHOD 09/01/2024 10:15 PM EDT [facility] Blood Venous blood specimen / Unknown Venipuncture / Unknown 09/01/2024 9:47 AM EDT 09/01/2024 9:47 AM EDT us Isrrael ROMERO LAB BLOOD ORDERABLES Donna l Result [facility] [address] [place] [address], * (ABNORMAL) Comprehensive metabolic panel (09/01/2024 9:47 AM EDT) Sodium 143 133 - 145 mmol/L LAB CHEMISTRY METHOD 09/01/2024 3:20 PM [facility] Potassium 4.7 3.5 - 5.5 mmol/L LAB CHEMISTRY METHOD 09/01/2024 3:20 PM [facility] Chloride 111(H) 96 - 110 mmol/L LAB CHEMISTRY METHOD 09/01/2024 3:20 PM [facility] CO2 24 21 - 32 mmol/L LAB CHEMISTRY METHOD 09/01/2024 3:20 PM [facility] Anion Gap 8 3 - 11 LAB CHEMISTRY METHOD 09/01/2024 3:20 PM [facility] Glucose 123(H) 70 - 100 mg/dL LAB CHEMISTRY METHOD 09/01/2024 3:20 PM [facility] BUN 18 5 - 25 mg/dL LAB CHEMISTRY METHOD 09/01/2024 3:20 PM [facility] Creatinine 1.09 0.70 - 1.30 mg/dL LAB CHEMISTRY METHOD 09/01/2024 3:20 PM [facility] eGFR 73 >=60 mL/min/1. 73m2 LAB CHEMISTRY METHOD 09/01/2024 3:20 PM [facility] Comment:Calculation based on the Chronic Kidney Disease Epidemiology Collaboration (CKD-EPI) equation refit without adjustment for race. BUN/Creatinine Ratio 16.5 LAB CHEMISTRY METHOD 09/01/2024 3:20 PM T [facility] Calcium 8.9 8.5 - 10.5 mg/dL LAB CHEMISTRY METHOD 09/01/2024 3:20 PM [facility] AST (SGOT) 24 10 - 42 unit/L LAB CHEMISTRY METHOD 09/01/2024 3:20 PM [facility] ALT (SGPT) 20 10 - 60 unit/L LAB CHEMISTRY METHOD 09/01/2024 3:20 PM [facility] Alkaline Phosphatase 157(H) 42 - 121 unit/L LAB CHEMISTRY METHOD 09/01/2024 3:20 PM [facility] Total Protein 7.9 6.0 - 8.0 g/dL LAB CHEMISTRY METHOD 09/01/2024 3:20 PM [facility] Albumin 4.0 3.2 - 5.0 g/dL LAB CHEMISTRY METHOD 09/01/2024 3:20 PM [facility] Total Bilirubin 0.4 0.0 - 1.4 mg/dL LAB CHEMISTRY METHOD 09/01/2024 3:20 PM [facility] Blood Venous blood specimen / Unknown Venipuncture / Unknown 09/01/2024 9:47 AM EDT 09/01/2024 9:47 AM EDT Isrrael ROMERO LAB BLOOD ORDERABLES Donna l Result [facility] [address] [place] [address], * Falls Risk Assessment (01/24/2024) Falls Risk Assessment abstracted Historical Provider HEALTH MAINTENANCE Final Result * Urine Albumin Creatinine Ratio (09/28/2023) Pathologist [facility] Urine Albumin Creatinine Ratio abstracted Historical Provider HEALTH MAINTENANCE Final Result * Diabetes Eye Exam (09/25/2023) [facility] Diabetes: Annual Retina Eye Exam abstracted [facility] Provider HEALTH MAINTENANCE Final Result * Diabetes Foot Exam (09/19/2023) Pathologist [facility] Diabetes: Annual Foot Exam abstracted Historical Provider HEALTH MAINTENANCE Final Result * Hepatitis C Screening (04/25/2014) Pathologist [facility] Hepatitis C Screening abstracted [facility] Provider HEALTH MAINTENANCE Final Result from Last 3 Months or Most Recently Relevant to Health Maintenance [place] [id number] MEDICARE [facility] Advance Directives Documents on File Type Date Recorded Patient Telephone Operator Chief Expl anation Health Care Decision (hx) 10/17/2023 HE ALTH CARE PROXY Health Care Decision (hx) 10/17/2023 HE ALTH CARE PROXY Health Care Decision (hx) 10/17/2023 HE ALTH CARE PROXY * Full Code - Default (Latest Code Status on File) Date Activated Date Inactivated Comments 06/02/2024 6:21 AM 06/02/2024 1:07 PM This is orde r is used when code status has not been discussed with the patient, or code status is otherwise unknown/unconfirmed To update the patient's code status, place a code status order. Do not modify or discontinue any currently active code status orders. Care Teams Centrifugal Drier Operator Relationship Specialty Start Date End Date Isrrael Dowling PA [address] [place] [id number] PCP - General Internal Medicine 03/24/24
--- OUTSIDE RECORDS SUMMARY | 2025-02-26 11:55 | XMS_ITS | Clinical Summary ---
Author Organization [facility] Address [address] [place] [address] Care Team Providers Care Watch And Clock Repair Clerk Name Role Phone Hernan Wheatley MD Primary Care Provider [phone] Allergies Active Allergy Reactions Criticality Noted Date Comments Latex 04/11/2018 Medications Medication Sig Dispensed Refills Start Date End Date Status clopidogrel (PLAVIX) 75 MG tablet TK 1 T PO D 0 04/05/2018 Active cyclobenzaprine (FLEXERIL) 10 MG tablet TK 1 T PO TID PRF MSP 5 03/22/2018 Active isosorbide mononitrate (IMDUR) 30 MG 24 hr tablet TK 1 T PO QD 5 03/22/2018 Active oxyCODONE-acetaminophen (PERCOCET) 10-325 MG per tablet TK 1 T PO Q 6 H PRN P 0 03/22/2018 Active rosuvastatin (CRESTOR) tablet 40 mg TK 1 T PO D 2 03/22/2018 Active sertraline (ZOLOFT) 100 MG tablet TK 1 T PO QD 0 04/05/2018 Active Active Problems Problem Noted Date Diagnosed Date Acute medial meniscus tear of right knee 018 Family History Medical History Relation Name Comments Diabetes Mother Heart disease Mother Hypertension Mother Relation Name Status Comments Mother Social History Tobacco Use Types Packs/Day Years Used Date Smoking Tobacco: Never Assessed Sex and Gender Information Value Date Recorded Sex Assigned at Not on file Gender Identity Not on file Sexual Orientation Not on file Job Start Date Occupation Industry Not on file Not on file Not on file Last Filed Vital Signs Vital Sign Reading Time Taken Comments Blood Pressure - - Pulse - - Temperature - - Respiratory Rate - - Oxygen Saturation - - Inhaled Oxygen Concentration - - Weight 115.7 kg (255 lb) 04/11/2018 9:46 AM EST Height 175.3 cm (5' 9 ) 04/11/2018 9:46 AM EST Body Mass Index 37.66 04/11/2018 9:46 AM EST Plan of Treatment Health Maintenance Due Date Last Done Comments Hepatitis C Screening 1955 COVID-19 Vaccine (#1) 04/28/1955 Depression Screening 1966 Preventative Health Evaluation 1972 Colon Cancer Screening (Colonoscopy) 10/27/1999 Shingrix-Zoster Vaccine (1 of 2) 2004 DTap / Tdap / Td (2 - Td or Tdap) 05/22/2017 05/22/2007 Fall Risk Assessment 10/27/2019 Pneumococcal Vaccine (2 of 2 - PCV) 10/27/2019 03/24/2005 Influenza Vaccine (#1) 2024 9, 02/02/2017, 04/07/2016, Additional history exists RSV Adult > 60+ Yrs or (1 - 1-dose 75+ series) 2029 Hepatitis B Vaccines Aged Out No long er eligible based on patient's age to complete this topic RSV Ped < 20 months Aged Out No longe r eligible based on patient's age to complete this topic Care Teams Watch And Clock Repair Clerk Relationship Specialty Start Date End Date Hernan Wheatley MD PCP - General Detective Bureau Chief 04/11/18
--- OUTSIDE RECORDS SUMMARY | 2025-02-26 11:55 | XMS_ITS ---
Author Name [facility] Organization Unknown History of Medication Use Medication Directions Dispensed Refills Start Date End Date Stat us oxycodone 5 mg tablet TAKE 1 TABLET BY MOUTH EVERY 6 HOURS NEEDED FOR PAIN completed cyclobenzaprine 10 mg tablet TAKE 1 TABLET BY MOUTH THREE TIMES DAILY NEEDED active diltiazem CD 120 mg capsule,extended release 24 hr TAKE 1 CAPSULE BY MOUTH DAILY active Eliquis 5 mg tablet TAKE 1 TABLET BY MOUTH TWICE DAILY active lisinopril 10 mg tablet TAKE 1 TABLET BY MOUTH DAILY active memantine 5 mg tablet TAKE 1 TABLET BY MOUTH TWICE DAILY active metformin 500 mg tablet TAKE 1 TABLET BY MOUTH EVERY DAY WITH BREAKFAST active metoprolol tartrate 100 mg tablet TAKE 1 TABLET BY MOUTH TWICE DAILY active oxycodone-acetaminoph en 10 mg-325 mg tablet TAKE 1 TABLET BY MOUTH FOUR TIMES DAILY active rosuvastatin 40 mg tablet TAKE 1 TABLET BY MOUTH DAILY active sertraline 100 mg tablet TAKE 1 TABLET BY MOUTH DAILY active Allergies Allergen Reaction Severity Comment Documented Date Source Statu s LATEX ENS_AONECT Problems Problem Status Onset Date Problem Type Date of Resoluti on Source Injury of tendon of triceps brachii active 2023-02-22 ProblemAct ENS_AONECT Encounters Encounter Type Encounter Reason Primary Diagnosis Location Date Ambulatory [facility] [place] 02/22/2023 Ambulatory [facility] [place] 02/22/2023 Ambulatory [facility] [place] 02/22/2023 Ambulatory [facility] [place] 02/22/2023 Ambulatory [facility] [place] 02/22/2023 Ambulatory [facility] [place] 02/19/2023 Care Team Organization Name Specialty Phone Email Start Date End Da te [facility] Termed, PROVIDER Primary Care 05/25/202405/24 [facility] Isrrael Dowling Primary Care 02/28/2022
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
== END 2025-02-26 10:45 | disposition home or self-care (01) ==
LOC: HO.HPHYS 10:13
PROVIDERS: PCP Physician Assistant Medical; Visit Provider Physical Medicine & Rehabilitation
DX: M17.0 Bilateral primary osteoarthritis of knee (principal)
CPT/HCPCS: 20610; 99214

== ENCOUNTER → 2025-02-26 10:12 | Outpatient (BNVA) | payer BC, MEDICARE, SELFPAY | PROVIDERS: PCP Physician Assistant Medical; Visit Provider Physical Medicine & Rehabilitation | DX: M17.12 Unilateral primary osteoarthritis, left knee (principal); M17.11 Unilateral primary osteoarthritis, right knee | CPT/HCPCS: 20610; J2003; J3301 ==